=== PATIENT | male | born 1975 | race Caucasian/White ===

== ENCOUNTER 2019-09-25 08:00 | Outpatient (CLI) | payer MEDICAID ==
[2019-09-25 13:08] LABS: BASOPHILS # (AUTO) 0.1 10^3/uL (0.0-0.1); BASOPHILS % (AUTO) 0.8 %; EOSINOPHILS # (AUTO) 0.2 10^3/uL (0.0-0.7); EOSINOPHILS % (AUTO) 2.1 %; HGB - HEMOGLOBIN 15.6 g/dL (14.0-18.0); LYMPHOCYTES # (AUTO) 1.9 10^3/uL (1.5-3.5); LYMPHOCYTES % (AUTO) 24.3 %; MEAN CORPUSCULAR HEMOGLOBIN 29.7 pg (27.0-31.0); MEAN CORPUSCULAR HGB CONC 32.4 g/dL (32.0-36.0); MEAN CORPUSCULAR VOLUME 91.4 fL (80.0-94.0); MEAN PLATELET VOLUME 11.5 fL (7.4-11.4); MONOCYTES # (AUTO) 0.6 10^3/uL (0.0-1.0); MONOCYTES % (AUTO) 7.9 %; NEUTROPHILS # (AUTO) 5.1 10^3/uL (1.5-6.6); NEUTROPHILS % (AUTO) 64.4 %; PLT - PLATELET COUNT 193 10^3/uL (130-450); RED BLOOD COUNT 5.26 10^6/uL (4.70-6.10); RED CELL DISTRIBUTION WIDTH 11.7 % (12.0-15.0)
[2019-09-25 13:26] LABS: ALBUMIN 4.6 g/dL (3.2-5.5); ALBUMIN/GLOBULIN RATIO 1.7 (1.0-2.2); ALKALINE PHOSPHATASE 78 IU/L (42-121); ALT ALANINE AMINOTRANSFERASE 38 IU/L (10-60); AST ASPARTATE AMINOTRANSFERASE 22 IU/L (10-42); BILIRUBIN,TOTAL 0.7 mg/dL (0.2-1.0); BUN - BLOOD UREA NITROGEN 17 mg/dL (6-20); CALCIUM 9.4 mg/dL (8.5-10.3); CARBON DIOXIDE - CO2 28 mmol/L (21-32); CHLORIDE 103 mmol/L (101-111); CHOLESTEROL 273 mg/dL; CREATININE 0.8 mg/dL (0.6-1.2); GFR - MDRD 105 (>89); GLUCOSE 96 mg/dL (70-100); HDL CHOLESTEROL 34 mg/dL; LDL CHOLESTEROL,CALCULATED 176 mg/dL; LDL/HDL RATIO 5.2 (<3.6); SODIUM 139 mmol/L (135-145); TOTAL PROTEIN 7.3 g/dL (6.7-8.2); VLDL CHOLESTEROL 63 mg/dL
== END 2019-09-25 23:59 | disposition home or self-care (01) ==
LOC: LAB.N 08:00
PROVIDERS: ATTEND Physician Assistant Medical
DX: Z00.00 Encounter for general adult medical examination without abnormal findings (principal); M87.9 Osteonecrosis, unspecified; H91.90 Unspecified hearing loss, unspecified ear; H81.03 Meniere's disease, bilateral; Z87.442 Personal history of urinary calculi; R03.0 Elevated blood-pressure reading, without diagnosis of hypertension; Z72.0 Tobacco use
CPT/HCPCS: 36415; 80053; 80061; 83721; 84443; 85025

== ENCOUNTER 2019-10-07 08:52 | Outpatient (CLI) | payer MEDICAID ==
--- NOTE | 2019-10-07 17:22 | Ultrasound Report ---
Reason: LUQ PAIN Procedure Date: 10/07/2019 Accession Number: [id number] / [id number] Procedure: US - Abdomen Limited CPT Code: Final Report FULL RESULT: EXAM: ABDOMEN ULTRASOUND LIMITED, LEFT UPPER QUADRANT EXAM DATE: 10/07/2019 10:21 AM. CLINICAL HISTORY: Left upper quadrant pain. COMPARISON: None. TECHNIQUE: Real-time scanning was performed with static images obtained. FINDINGS: Left kidney measures 11.8 cm in length. No left renal mass, stone or hydronephrosis. 0.7 x 0.7 x 1 cm anechoic left upper renal cyst. No wall irregularities, mural nodules or thickened septations. Spleen measures 10.1 x 3.9 x 10.8 cm. Volume measures 222 cc. No mass. IMPRESSION: 1. No left renal mass, stone or hydronephrosis. 2. Normal spleen. Comment: If symptoms persist or remain clinically concerning, recommend contrast-enhanced CT of the abdomen and pelvis. [facility]IA
== END 2019-10-07 08:53 | disposition home or self-care (01) ==
LOC: DI 08:52
PROVIDERS: ATTEND Physician Assistant Medical
DX: R10.12 Left upper quadrant pain (principal)
CPT/HCPCS: 76705

== ENCOUNTER 2019-11-16 19:33 | Outpatient (CLI) | payer MEDICAID | END 2019-11-16 23:59 | disposition short-term general hospital (02) | LOC: EMS 19:33 | PROVIDERS: ATTEND Surgery | DX: R56.9 Unspecified convulsions (principal); R09.89 Other specified symptoms and signs involving the circulatory and respiratory systems | CPT/HCPCS: A0425; A0429; A0999 ==

== ENCOUNTER 2019-11-29 12:23 | Outpatient (CLI) | payer MEDICAID ==
[2019-11-29 18:33] LABS: BASOPHILS # (AUTO) 0.1 10^3/uL (0.0-0.1); BASOPHILS % (AUTO) 0.8 %; EOSINOPHILS # (AUTO) 0.1 10^3/uL (0.0-0.7); EOSINOPHILS % (AUTO) 1.4 %; HGB - HEMOGLOBIN 14.4 g/dL (14.0-18.0); LYMPHOCYTES # (AUTO) 2.1 10^3/uL (1.5-3.5); LYMPHOCYTES % (AUTO) 26.6 %; MEAN CORPUSCULAR HEMOGLOBIN 28.8 pg (27.0-31.0); MEAN CORPUSCULAR HGB CONC 31.6 g/dL (32.0-36.0); MONOCYTES # (AUTO) 0.7 10^3/uL (0.0-1.0); MONOCYTES % (AUTO) 8.6 %; NEUTROPHILS # (AUTO) 4.9 10^3/uL (1.5-6.6); NEUTROPHILS % (AUTO) 62.1 %; PLT - PLATELET COUNT 211 10^3/uL (130-450); RED CELL DISTRIBUTION WIDTH 12.3 % (12.0-15.0); WHITE BLOOD COUNT 7.9 x10^3/uL (4.8-10.8)
[2019-11-29 19:27] LABS: ALBUMIN 4.6 g/dL (3.2-5.5); ALBUMIN/GLOBULIN RATIO 1.6 (1.0-2.2); BILIRUBIN,TOTAL 0.6 mg/dL (0.2-1.0); CALCIUM 9.3 mg/dL (8.5-10.3); CREATININE 0.9 mg/dL (0.6-1.2); MAGNESIUM 2.1 mg/dL (1.7-2.8); TOTAL PROTEIN 7.5 g/dL (6.7-8.2)
== END 2019-11-29 23:59 | disposition home or self-care (01) ==
LOC: LAB.N 12:23
PROVIDERS: ATTEND Physician Assistant Medical
DX: D72.829 Elevated white blood cell count, unspecified (principal); R39.12 Poor urinary stream
CPT/HCPCS: 36415; 80053; 83735; 84153; 84443; 85025

== ENCOUNTER 2020-01-04 14:58 | Outpatient (CLI) | payer MEDICAID | END 2020-01-04 14:59 | disposition critical access hospital (66) | LOC: EMS 14:58 | PROVIDERS: ATTEND Surgery | DX: R39.89 Other symptoms and signs involving the genitourinary system (principal) | CPT/HCPCS: A0425; A0429; A0999 ==

== ENCOUNTER 2020-01-04 15:32 | Emergency (ER) | payer MEDICAID ==
[2020-01-04 15:45] VITALS: BP 148/97
[2020-01-04 16:05] LABS: BILIRUBIN,URINE NEGATIVE (NEGATIVE); GLUCOSE, URINE (UA) NEGATIVE (NEGATIVE); KETONES,URINE (UA) NEGATIVE (NEGATIVE); LEUKOCYTE ESTERASE, URINE NEGATIVE (NEGATIVE); NITRITE,URINE NEGATIVE (NEGATIVE); OCCULT BLOOD,URINE LARGE (NEGATIVE); PROTEIN,URINE NEGATIVE (NEGATIVE); UROBILINOGEN,URINE 0.2 (NORMAL) E.U./dL (NORMAL)
[2020-01-04 16:07] LABS: CLARITY,URINE CLEAR (CLEAR)
[2020-01-04 16:23] LABS: BACTERIA,URINE None Seen /HPF (None Seen); RBC,URINE TNTC /HPF (0-5); SQUAMOUS EPITHELIAL CELL,UR NONE SEEN (<= Few)
[2020-01-04] MEDS ORDERED: KETOROLAC 30 MG/ML VIAL IM STA (16:33)
--- NOTE | 2020-01-04 16:53 | ED Physician Documentation ---
PD HPI MALE - Stated complaint Stated Complaint: BLADDER PAIN - Chief complaint Chief Complaint: Abd Pain - History obtained from History obtained from: Patient ( 44 yo M w/ pmh of kidney stones and "prostate problem" per his report, presented via EMS due to sudden right groin pain and difficulty passing urine this afternoon. He had felt fine all day. States he started to feel a little discomfort this afternoon and looked on the internet and apparently read something that said benadryl could be helpful. He had no improvement and in fact worsening pain and was not able to void so he called EMS. He denies any fever, chills, cough or URI sx, chest pain, dyspnea, vomiting, diarrhea. No scrotal pain or swelling. No penile discharge. Pt states he was on tamsulosin until abotu 2 weeks ago when he ran out. He was on it for a "trial" but then has not been able to get back in to see the provider due to Covid. He has been followed by urology in the past. No uretal stents or lithotripsy or other urogenital/prostate procedures.) Review of Systems Constitutional: reports: Reviewed and negative Cardiac: reports: Reviewed and negative Respiratory: reports: Reviewed and negative GI: reports: Abdominal Pain. denies: Abdominal Swelling, Nausea, Vomiting, Constipation, Diarrhea, Hematemesis, Bloody / black stool : reports: Dysuria, Hesitancy, Hematuria. denies: Frequency, Discharge Skin: reports: Reviewed and negative PD PAST MEDICAL HISTORY - Past Medical History Past Medical History: Yes Cardiovascular: High cholesterol : Kidney stones Psych: Anxiety - Past Surgical History Past Surgical History: Yes Ortho: Shoulder arthroplasty - Present Medications Home Medications: Ambulatory Orders Medication Instructions Recorded Confirmed Divalproex ER [Depakote ER] 1,500 mg PO DAILY 12/09/13 07/16/14 Buspirone HCl 10 mg PO TID 07/16/14 07/16/14 Citalopram Hydrobromide 40 mg PO DAILY 07/16/14 07/16/14 [Citalopram HBr] Pravastatin Sodium 80 mg PO DAILY 07/16/14 07/16/14 Verapamil HCl [Verapamil Sr] 180 mg PO DAILY 07/16/14 07/16/14 Hydrocodone/Acetaminophen 1 - 2 each PO Q6H PRN #14 tablet 01/04/20 [Hydrocodon-Acetaminophen 5-325] Tamsulosin [Flomax] 0.4 mg PO DAILY 30 Days #30 capsule 01/04/20 - Allergies Allergies/Adverse Reactions: Allergies Allergy/AdvReac Type Severity Reaction Status Date / Time No Known Drug Allergies Allergy Verified 01/04/20 15:41 - Social History Does the pt smoke?: Yes Smoking Status: Current every day smoker Does the pt drink ETOH?: No Does the pt have substance abuse?: No - POLST Patient has POLST: No PD ED PE NORMAL - Vitals Vital signs reviewed: Yes - General General: Alert and oriented X 3, No acute distress, Well developed/nourished - Cardiac Cardiac: RRR, No murmur, No gallop, No rub, Strong equal pulses - Respiratory Respiratory: No respiratory distress, Clear bilaterally - Abdomen Abdomen: Normal bowel sounds, Soft, Non tender, Non distended - Male Male : Other (normal ext genitalia, no swelling, non tender) - Back Back: No CVA TTP, No spinal TTP - Derm Derm: Normal color, Warm and dry, No rash - Neuro Neuro: Alert and oriented X 3 Eye Opening: Spontaneous Motor: Obeys Commands Verbal: Oriented GCS Score: 15 - Psych Psych: Normal mood, Normal affect Results - Vitals Vitals: Vital Signs - 24 hr 01/04/20 15:41 Temperature 36.3 C L Heart Rate 104 H Respiratory 16 Rate Blood Pressure 148/97 H O2 Saturation 97 Oxygen O2 Source Room air - Labs Labs: Laboratory Tests 01/04/20 15:55 Urine Color YELLOW Urine Clarity CLEAR Urine pH 6.0 Ur Specific [place] 1.020 Urine Protein NEGATIVE Urine Glucose (UA) NEGATIVE Urine Ketones NEGATIVE Urine Occult Blood LARGE H Urine Nitrite NEGATIVE Urine Bilirubin NEGATIVE Urine Urobilinogen 0.2 (NORMAL) Ur Leukocyte Esterase NEGATIVE Urine RBC TNTC H Urine WBC 0-3 Ur Squamous Epith Cells NONE SEEN Urine Bacteria None Seen Ur Microscopic Review INDICATED Urine Culture Comments NOT INDICATED PD MEDICAL DECISION MAKING - ED course Complexity details: reviewed results, re-evaluated patient, considered differential, d/w patient ED course: 44 yo M w/ pmh of kidney stones previously followed by urology presented with sudden right groin pain. It had resolved by the time pt arrived and he was able to void on arrival. His UA is negative for infection but there are numerous RBCs present. He was able to void again shortly thereafter which visibly appeared clearer. He continues to have sensation of urgency w/ urination but flank/groin pain and dysuria resolved. He has no fever, chills, n/v, to suggest infected stone or other intraabdominal process. His pain has resolved so potentially passed stone or has hematuria for another reason. I sent gonorrhea/chlamydia though low suspicion. Will treat as stone and adivsed pt to drink plenty of water and may take nsaids w/ vicodin if breakthrough. will resume tamsulosin as this was helpful for pt before, though data does not support regular use for clearing kidney stones. pt to follow up w/ his urologist/pcp in 2-3 weeks for follow up and repeat UA to eval hematuria. He is to return if he has worsening pain, fever/chills, nausea, vomiting, or otherwise worsening sx. Departure - Departure Disposition: 01 Home, Self Care Clinical Impression: Kidney stones Condition: Good Instructions: Abdominal Pain, Kidney Stones Prescriptions: Hydrocodone/Acetaminophen [Hydrocodon-Acetaminophen 5-325] 1 - 2 each PO Q6H PRN #14 tablet PRN Reason: pain Tamsulosin [Flomax] 0.4 mg PO DAILY 30 Days #30 capsule Comments: You presented with groin pain and difficulty urinating but were able to pass urine in the ER. Your urine appears to have a lot of blood which can happen with kidney stones, infection, or other reasons. Your initial urine test is negative for infection but we have sent the urine to the lab to check for other types of infection as well. If there are any positive results, we will call you. For the likely kidney stones I recommend you stay well hydrated. I will prescribe vicodin for pain relief, but I also would like you to try Ibuprofen 400-800mg every 8 hours. I will resume your tamsulosin (Flomax) temporarily as this has helped you before. If you have worsening pain or develop fever or vomiting, return to the ER. Please follow up with your primary doctor in 2-3 weeks to repeat the urine test to evaluate for blood. If there is still blood in the urine, your primary doctor may recommend a referral to a urologist for a procedure called a cystoscopy to find the cause of the bleeding. Discharge Date/Time: 01/04/20 17:04
[2020-01-04 20:55] LABS: TRICHOMONAS VAGINALIS DNA NEGATIVE (NEGATIVE)
== END 2020-01-04 17:04 | disposition home or self-care (01) ==
LOC: EDUNIT# → ED 15:32
DX: N20.0 Calculus of kidney (principal); F17.200 Nicotine dependence, unspecified, uncomplicated; Z87.442 Personal history of urinary calculi
CPT/HCPCS: 81001; 81003; 87081; 87086; 87491; 87591; 87661; 96372; 99283; 99284

== ENCOUNTER 2023-11-09 08:20 | Outpatient (CLI) | payer MEDICAID ==
[2023-11-09 14:35] LABS: BASOPHILS # (AUTO) 0.1 10^3/uL (0.0-0.1); BASOPHILS % (AUTO) 0.9 %; EOSINOPHILS # (AUTO) 0.3 10^3/uL (0.0-0.7); HCT - HEMATOCRIT 49.3 % (42.0-52.0); HGB - HEMOGLOBIN 16.6 g/dL (14.0-18.0); LYMPHOCYTES # (AUTO) 2.7 10^3/uL (1.5-3.5); LYMPHOCYTES % (AUTO) 26.3 %; MEAN CORPUSCULAR HEMOGLOBIN 31.1 pg (27.0-31.0); MEAN CORPUSCULAR HGB CONC 33.7 g/dL (32.0-36.0); MEAN CORPUSCULAR VOLUME 92.5 fL (80.0-94.0); MEAN PLATELET VOLUME 12.4 fL (7.4-11.4); MONOCYTES % (AUTO) 9.9 %; NEUTROPHILS # (AUTO) 6.2 10^3/uL (1.5-6.6); NEUTROPHILS % (AUTO) 59.6 %; PLT - PLATELET COUNT 223 10^3/uL (130-450); RED BLOOD COUNT 5.33 10^6/uL (4.70-6.10); RED CELL DISTRIBUTION WIDTH 12.5 % (12.0-15.0); WHITE BLOOD COUNT 10.4 x10^3/uL (4.8-10.8)
[2023-11-09 15:16] LABS: ALBUMIN 4.6 g/dL (3.2-5.5); ALBUMIN/GLOBULIN RATIO 2.1 (1.0-2.2); ALKALINE PHOSPHATASE 80 IU/L (42-121); ALT ALANINE AMINOTRANSFERASE 60 IU/L (10-60); AST ASPARTATE AMINOTRANSFERASE 39 IU/L (10-42); BILIRUBIN,TOTAL 0.7 mg/dL (0.2-1.0); BUN - BLOOD UREA NITROGEN 13 mg/dL (6-20); CALCIUM 9.5 mg/dL (8.5-10.3); CARBON DIOXIDE - CO2 23 mmol/L (21-32); CHLORIDE 104 mmol/L (101-111); CHOL/HDL RATIO 5.7 (<5.0); CHOLESTEROL 234 mg/dL; CREATININE 0.9 mg/dL (0.6-1.3); GFR - MDRD 90 (>89); GLUCOSE 99 mg/dL (74-104); HDL CHOLESTEROL 41 mg/dL; LDL CHOLESTEROL,CALCULATED 146 mg/dL; LDL/HDL RATIO 3.6 (<3.6); POTASSIUM 3.8 mmol/L (3.5-4.5); SODIUM 135 mmol/L (135-145); TOTAL PROTEIN 6.8 g/dL (6.4-8.9); TRIGLYCERIDES 237 mg/dL (48-352); VLDL CHOLESTEROL 47 mg/dL
[2023-11-09 15:47] LABS: THYROID STIMULATING HORMONE 2.75 uIU/mL (0.34-5.60)
[2023-11-09 18:53] LABS: ESTIMATED AVERAGE GLUCOSE 105 mg/dL (70-100); HEMOGLOBIN A1c% 5.3 % (4.27-6.07)
== END 2023-11-09 08:21 | disposition home or self-care (01) ==
LOC: LAB.S 08:20
PROVIDERS: ATTEND Physician Assistant Medical
DX: Z13.9 Encounter for screening, unspecified (principal)
CPT/HCPCS: 36415; 80053; 80061; 83036; 83721; 84153; 84443; 85025